=== PATIENT | male | born 1980 | race Caucasian/White ===

== ENCOUNTER 2018-09-19 11:29 | Emergency (ER) | payer OTHER ==
[~2018-09-19] VITALS: Ht 167.6 cm; Wt 96.2 kg
[2018-09-19] MEDS ORDERED: HYDROCODON-ACE1 EAC7 PO (11:46)
[2018-09-19 12:07] LABS: ABSOLUTE BASOPHILS 0.1 thou/uL (0.0-0.2); ABSOLUTE EOSINOPHILS 0.1 thou/uL (0.0-0.7); ABSOLUTE LYMPHOCYTES 1.5 thou/uL (0.8-5.3); ABSOLUTE MONOCYTES 0.7 thou/uL (0.0-1.2); ABSOLUTE NEUTROPHILS 8.6 thou/uL (1.6-8.1); BASOPHILS 0.9 %; EOSINOPHILS 0.9 %; HEMATOCRIT 42.3 % (42.0-52.0); HEMOGLOBIN 14.2 gm/dL (14.0-18.0); LYMPHOCYTES 13.4 %; MCH 28.3 pg (26.0-34.0); MCHC 33.5 g/dL (28.0-37.0); MCV 84.5 fL (80.0-100.0); MONOCYTES 6.2 %; MPV 10.2 fl. (7.2-11.1); NUCLEATED RBCS 0 /100WBC; PLATELET COUNT* 347 thou/uL (150-400); POLYS 78.6 %; RBC 5.01 mil/uL (4.50-6.00); RDW-CV 13.3 % (10.5-14.5)
[2018-09-19 12:27] LABS: CALCIUM 9.5 mg/dL (8.5-10.1)
[2018-09-19 12:37] LABS: ALBUMIN 3.3 g/dL (3.4-5.0); TOTAL BILIRUBIN 0.2 mg/dL (<0.1-1.0)
[2018-09-19 12:37] LABS: URINE BILIRUBIN NEGATIVE (Negative); URINE BLOOD NEGATIVE (Negative); URINE CLARITY CLEAR; URINE COLOR YELLOW; URINE GLUCOSE-RANDOM NEGATIVE (Negative); URINE KETONES NEGATIVE (Negative); URINE LEUKOCYTES-REFLEX NEGATIVE (Negative); URINE NITRITE-REFLEX NEGATIVE (Negative); URINE PROTEIN NEGATIVE (Negative)
[2018-09-19 12:44] LABS: AMP/METHAMP Negative (Negative); BARBITURATES Negative (Negative); BENZODIAZEPINES Negative (Negative); COCAINE Negative (Negative); METHADONE Negative (Negative); OPIATES POSITIVE (Negative); PCP Negative (Negative); THC Negative (Negative)
[2018-09-19 12:58] VITALS: BP 135/77
--- NOTE | 2018-09-20 12:58 | EKG ---
[place] [address] ELECTROCARDIOGRAM REPORT Name: GUERO JAEGER Room: [facility]#: [id number] Admission: 09/19/18 Attend Phys: Discharge: 09/19/18 Date of : 80 Report #: [id number] THIS REPORT FOR: //name// [facility] ED Test Date: 2018-09-19 Test Time: 11:46:59 Pat Name: GUERO JAEGER Department: Room: Gender: M Pharmacy Resource Tech: : 1980 Requested By: Cindy Lee Order Number: [id number] MD: Rick Doyle Measurements Intervals Stamps Rate: 82 P: 22 LA: 119 QRS: 41 QRSD: 83 T: 6 QT: 366 QTc: 428 Interpretive Statements Sinus rhythm Borderline short LA interval Probable left atrial enlargement Borderline repolarization abnormality Baseline wander in lead(s) V3 No previous ECG available for comparison Electronically Signed On 09-20-2018 12:58:18 PLASTIC SURGEON by Rick Doyle [email or web address] <ELECTRONICALLY SIGNED> By: Rick Doyle MD, [facility] 09/20/18 1258 [id number] Rick Doyle MD, [facility] /EPI
== END 2018-09-19 13:01 | disposition home or self-care (01) ==
LOC: M.ERS 11:29
PROVIDERS: Nurse Practitioner Family
DX: R55 Syncope and collapse (principal)

== ENCOUNTER 2020-05-03 19:09 | Emergency (ER) | payer OTHER ==
[~2020-05-03] VITALS: Ht 170.2 cm; Wt 95.3 kg
[~2020-05-03 19:09] MED LIST: HYDROCODON-ACE1 EAC7 PO
[2020-05-03 20:45] VITALS: BP 179/72
== END 2020-05-03 20:46 | disposition home or self-care (01) ==
LOC: M.ERS 19:09
DX: S60.121A Contusion of right index finger with damage to nail, initial encounter (principal); F17.210 Nicotine dependence, cigarettes, uncomplicated; Z88.8 Allergy status to other drugs, medicaments and biological substances; W23.0XXA Caught, crushed, jammed, or pinched between moving objects, initial encounter; Y93.89 Activity, other specified; Y92.89 Other specified places as the place of occurrence of the external cause; Y99.0 Civilian activity done for income or pay